=== PATIENT | female | born 1985 | race Caucasian/White ===

== ENCOUNTER 2017-08-15 23:00 | Emergency (ER) | payer OTHER ==
[~2017-08-15] VITALS: Ht 172.7 cm; Wt 72.7 kg
[2017-08-16 00:51] VITALS: BP 149/90
== END 2017-08-16 00:52 | disposition home or self-care (01) ==
LOC: EME 23:00
DX: J02.9 Acute pharyngitis, unspecified (principal)
CPT/HCPCS: 87651 90; 99281; 99284; J0561; J1100